=== PATIENT | female | born 1960 | race Caucasian/White ===

== ENCOUNTER → 2017-10-06 | Outpatient (CLI) | payer BC ==
[~2017-10-06] MED LIST: DULO60CA44 PO; OXYB15TA PO; PREG1CAP28 PO; TIZA1CAP PO; TRAM1TAB96 PO; TRAM1TAB98 PO
== END | disposition home or self-care (01) ==
LOC: C.CPL 11:47
PROVIDERS: ATTEND Orthopaedic Surgery
DX: M18.12 Unilateral primary osteoarthritis of first carpometacarpal joint, left hand (principal); R94.31 Abnormal electrocardiogram [ECG] [EKG]